=== PATIENT | male | born 1965 | race Caucasian/White ===

== ENCOUNTER 2024-08-30 15:12 | Emergency (ER) | payer SELFPAY ==
[2024-08-30 15:39] VITALS: BP 145/73
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
[2024-08-30 16:16] VITALS: BMI 32.7
[2024-08-30] MEDS: MOTRIN 600 MG PO (17:11)
== END 2024-08-30 17:22 | disposition home or self-care (01) ==
LOC: EMR 15:12
PROVIDERS: EMERGENCY PHYSICIAN Student in an Organized Health Care Education/Training Program
DX: S16.1XXA Strain of muscle, fascia and tendon at neck level, initial encounter (principal); S39.012A Strain of muscle, fascia and tendon of lower back, initial encounter; V43.52XA Car driver injured in collision with other type car in traffic accident, initial encounter; Y92.410 Unspecified street and highway as the place of occurrence of the external cause
CPT/HCPCS: 99282